=== PATIENT | female | born 1980 ===

== ENCOUNTER 2022-03-10 18:13 | Emergency (ER) | payer OTHER, BC ==
[2022-03-10] MEDS ORDERED: Diphtheria,Pertussis(Acell),Tetanus Vaccine 0.5 ML Syringe IM ONE (18:35)
[2022-03-10 19:20] VITALS: BP 147/72; PULSE 107
== END 2022-03-10 19:19 | disposition home or self-care (01) ==
LOC: MW.ED 18:13
DX: S20.211A Contusion of right front wall of thorax, initial encounter (principal); V49.59XA Passenger injured in collision with other motor vehicles in traffic accident, initial encounter; Y92.410 Unspecified street and highway as the place of occurrence of the external cause
CPT/HCPCS: 71101-26-RT; 71101-RT; 99284